=== PATIENT | male | born 1945 ===

== ENCOUNTER 2019-06-24 07:52 | Day surgery (SDC) | payer MEDICARE, OTHER ==
[~2019-06-24 07:52] MED LIST: Acetaminophen TAB* 325 MG PO PRN; Buffered Lidocaine 1% SYRIN* 1 ML/SYRINGE INTRADERM ONE; mitoMYcin 0.2 MG (0.02%) in Sterile Water for Inj* 1 ML SCH
[2019-06-24] MEDS ORDERED: Proparacaine 0.5% OPHTH.SOL* 15 ML BTL ONE ×2 (08:00→08:22)
[2019-06-24] MEDS ORDERED: Neomycin/Polymy/Dex OPTH.SUSP* MAXITROL 0.1% 5 ML ONE (08:21)
[2019-06-24] MEDS ORDERED: Lidocaine 2% w/ EPI 1:200,000* 20 ML SDV VIAL ONE (08:21)
[2019-06-24] MEDS ORDERED: Lidocaine 1% MPF ** 5 ML VIAL ONE (08:21)
[2019-06-24] MEDS ORDERED: Povidone Iodine 5% OPTH* 30 ML BTL ONE (08:21)
[2019-06-24] MEDS ORDERED: Carbachol 0.01% OPH.SOL* 1.5 ML OPHTH.SOLN ONE (08:24)
[2019-06-24] MEDS ORDERED: Midazolam* 1 MG/ML 2 ML VIAL (2 MG) ONE (08:57)
[2019-06-24 09:46] VITALS: BP 153/82
--- NOTE | 2019-06-24 10:21 | OP ---
DATE OF OPERATION: 06/24/19 - [facility] DATE OF : 43 SURGEON: Jame Wood MD. ANESTHESIA: Local with MAC. PRE-OP DIAGNOSIS: Uncontrolled glaucoma, right eye. POST-OP DIAGNOSIS: Uncontrolled glaucoma, right eye. OPERATIVE PROCEDURE: Xen implant, right eye. COMPLICATIONS: None. DESCRIPTION OF PROCEDURE: The patient was given 2% lidocaine with epinephrine topical. The eye was prepped and draped in the usual sterile fashion. Lid speculum was placed. Eye rotated inferiorly using a 6-0 silk traction suture that was placed through the superior limbus. Markings were made 7 mm and 2.5 mm posterior to the limbus at the 11:30 position. Xen stent was introduced at the 7-mm dg, passed subconjunctivally to the 2.5-mm dg. Sclera engaged and then the implant deployed into the anterior chamber using a shooter. The position was checked with the gonioprism as well as transconjunctival inspection. Good blood formation developed. Mitomycin-C 0.2 mg/mL was injected subconjunctivally superiorly and milked posteriorly. Paracentesis made at the 9 o'clock position with the 75-blade. Anterior chamber was irrigated with balanced salt solution and topical antibiotic drops were also given, and then the eye was patched. [id number]/[facility] #: [id number] MTDD
== END 2019-06-24 09:40 | disposition home or self-care (01) ==
LOC: OREAST 07:52
PROVIDERS: ATTEND Specialist
DX: H40.1213 Low-tension glaucoma, right eye, severe stage (principal); J30.2 Other seasonal allergic rhinitis; M19.90 Unspecified osteoarthritis, unspecified site; Z96.652 Presence of left artificial knee joint
CPT/HCPCS: A9270-GY; C1725; J2250; J9280